=== PATIENT | female | born 1950 | race Caucasian/White ===

== ENCOUNTER 2024-09-11 07:09 | Day surgery (SDC) | payer MEDICAID ==
[~2024-09-11] VITALS: Ht 157.5 cm; Wt 40.0 kg
[~2024-09-11 07:09] MED LIST: ALBU18HF12 IH; AZEL137S8 NASAL; BUDE10.2 IH; CETI10TA58 PO; DONE-51 PO; DULO30CA89 PO; FAMO20 PO; HYDR-3831 PO; LIDO-16 TP; MEMA10TA21 PO; SODIUM CHLORIDE 0.9% 1,000 ML ONE; TIOT4MIS2 IH; TRAZ-252 PO
[2024-09-11] MEDS: SODIUM CHLORIDE 0.9% 1,000 ML IV ONE (08:00)
[2024-09-11] MEDS ORDERED: MIDAZOLAM HCL 2 MG/2 ML VIAL ONE (08:22)
[2024-09-11] MEDS ORDERED: FentaNYL CITRATE PF 100 MCG/2 ML VIAL ONE (08:22)
[2024-09-11 10:15] VITALS: PULSE 79; RESP 20; O2SAT 96
== END 2024-09-11 12:55 | disposition home or self-care (01) ==
LOC: SURGERY 07:09
PROVIDERS: ATTEND Internal Medicine Critical Care Medicine
DX: R05.3 Chronic cough (principal); R06.1 Stridor; E78.00 Pure hypercholesterolemia, unspecified; J43.9 Emphysema, unspecified; Z87.891 Personal history of nicotine dependence; Z79.899 Other long term (current) drug therapy; Z90.710 Acquired absence of both cervix and uterus; Z98.891 History of uterine scar from previous surgery; Z98.818 Other dental procedure status
CPT/HCPCS: 31623; 87206; 87101; 87220; 87070; 88108; 31624; 94760; 71045; 87015; J3010; J2250; J2919; J7030